=== PATIENT | female | born 1955 | race Asian ===

== ENCOUNTER 2021-12-22 07:12 | Day surgery (SDC) | payer BC ==
[~2021-12-22] VITALS: Ht 154.9 cm; Wt 65.8 kg
[2021-12-22] MEDS ORDERED: SIMETHICONE 40 MG/0.6 ML ML ONE (09:55)
[2021-12-22] MEDS: fentaNYL CITRATE/PF 100 MCG/2 ML AMP ONE ×2 (09:58→10:00)
[2021-12-22] MEDS: MIDAZOLAM HCL 5 MG/5 ML VIAL ONE ×3 (09:58→10:14)
[2021-12-22 14:11] VITALS: BP_SYST 105
== END 2021-12-22 11:30 | disposition home or self-care (01) ==
LOC: SDS 07:12 → SMU 07:17 → SDS 11:30
PROVIDERS: ATTEND Internal Medicine
DX: Z12.11 Encounter for screening for malignant neoplasm of colon (principal); D12.3 Benign neoplasm of transverse colon; K57.30 Diverticulosis of large intestine without perforation or abscess without bleeding; K64.8 Other hemorrhoids; Z86.010 Personal history of colon polyps; Z79.899 Other long term (current) drug therapy; Z20.822 Contact with and (suspected) exposure to COVID-19
CPT/HCPCS: 36415; 45385; 82962; 87426; 88305; 99152; G0378; J2250; J3010; 45378